=== PATIENT | female | born 1960 | race Caucasian/White ===

== ENCOUNTER 2017-03-16 17:55 | Emergency (ER) | payer SELFPAY ==
[~2017-03-16] VITALS: Ht 175.3 cm; Wt 81.8 kg
[~2017-03-16 17:55] MED LIST: CARDIZEM 30MG T30 MG PO; CELEXA 20MG20 MG/TAB PO; HCTZ 25MG TAB25 MG PO; PRILOSEC 20MG20 MG PO
[2017-03-16 17:57] VITALS: TEMP 97.7
[2017-03-16 19:13] VITALS: BP 142/76; PULSE 96
== END 2017-03-16 19:16 | disposition home or self-care (01) ==
LOC: COL.ER 17:55
DX: S61.011A Laceration without foreign body of right thumb without damage to nail, initial encounter (principal); F17.210 Nicotine dependence, cigarettes, uncomplicated; Z23 Encounter for immunization; W26.0XXA Contact with knife, initial encounter; Y92.009 Unspecified place in unspecified non-institutional (private) residence as the place of occurrence of the external cause

== ENCOUNTER 2018-11-30 16:41 | Inpatient (IN) | payer OTHER ==
[~2018-11-30] VITALS: Ht 175.3 cm; Wt 83.2 kg
[2018-11-30] VITALS (134 sets, daily range): BP systolic 163–170; BP diastolic 98–102; PULSE 95–99; TEMP 97.8; O2SAT 85–100
[2018-11-30 17:00] LABS: BASO % 0.4 % (0.0-2.0); EOS # 0.1 (0.0-0.7); EOS % 1.3 % (0-4.0); GRAN # 8.4 (1.4-6.5); GRAN % 78.8 % (42.2-75.2); HEMATOCRIT 44.5 % (37.0-47.0); HEMOGLOBIN 13.9 g/dl (12.5-16.0); LYMPH # 1.4 (1.2-3.4); LYMPH % 13.5 % (20.0-51.0); MEAN CELL VOLUME 90 fl (80.0-100.0); MEAN CORPUSCULAR HEMOGLOBIN 28 pg (27.0-31.0); MEAN CORPUSCULAR HGB CONC 31 g/dl (33.0-37.0); MEAN PLATELET VOLUME 11.1 fl (7.4-10.4); MONO # 0.6 (0.1-0.6); MONO % 5.8 % (1.7-9.3); PLATELET COUNT 322 K/mm3 (130-400); RED BLOOD COUNT 4.92 M/mm3 (4.10-5.30); REDCELL DISTRIBUTION WIDTH-CV 14.6 % (11.5-14.5)
[2018-11-30 17:16] LABS: ALBUMIN 4.1 gm/dL (3.5-5.0); BILIRUBIN,TOTAL 0.9 mg/dL (0.0-1.0); C-REACTIVE PROTEIN 1.9 mg/dL (0.0-0.9); CALCIUM 9.4 mg/dL (8.4-10.2); CREATININE, serum 0.82 (0.52-1.25); POTASSIUM 4.2 mmol/L (3.4-5.0); TOTAL PROTEIN 7.6 gm/dL (6.4-8.2)
[2018-11-30 17:27] LABS: TROPONIN-I 0.047 ng/mL (0.000-0.035)
--- NOTE | 2018-11-30 20:03 | NUR ---
Pt report received from Loulou KIM in ED.
--- NOTE | 2018-11-30 20:11 | NUR ---
Pt arrived to ICU06 via stretcher from ED accompanied by personal belongings. Pt was able to ambulate independently from the stretcher to the toilet located in the pts room and back to bed. No c/o dizziness or pain at this time. Increase SOA noted with ambulation. Assessment began at this time.
[2018-11-30] MEDS ORDERED: TRELEGY ELLIPT1 EACH IH (20:19)
[2018-11-30 23:27] LABS: MAGNESIUM 1.7 mg/dL (1.6-2.3)
[2018-11-30 23:43] LABS: TROPONIN-I 6 HR POST INITIAL 0.04 ng/mL (0.000-0.034)
[2018-12-01] VITALS (921 sets, daily range): BP systolic 126–174; BP diastolic 61–118; PULSE 88–102; TEMP 97.8–99.1; O2SAT 87–100
--- NOTE | 2018-12-01 01:40 | NUR ---
Pts O2 sats were dropping below 90% staying consistently around 88-89% for approx 3-4 minutes. O2 was applied to pt via NC at 2L. RT notified.
[2018-12-01 04:51] LABS: BASO % 0.4 % (0.0-2.0); EOS # 0.2 (0.0-0.7); EOS % 1.9 % (0-4.0); GRAN # 6.2 (1.4-6.5); HEMATOCRIT 41.9 % (37.0-47.0); HEMOGLOBIN 13.1 g/dl (12.5-16.0); LYMPH # 1.4 (1.2-3.4); LYMPH % 16.5 % (20.0-51.0); MEAN CELL VOLUME 90 fl (80.0-100.0); MEAN CORPUSCULAR HEMOGLOBIN 28 pg (27.0-31.0); MEAN CORPUSCULAR HGB CONC 31 g/dl (33.0-37.0); MEAN PLATELET VOLUME 10.9 fl (7.4-10.4); MONO # 0.6 (0.1-0.6); PLATELET COUNT 285 K/mm3 (130-400); RED BLOOD COUNT 4.65 M/mm3 (4.10-5.30); REDCELL DISTRIBUTION WIDTH-CV 14.6 % (11.5-14.5)
[2018-12-01 04:54] LABS: INR 1.2 (0.8-3.0)
[2018-12-01 05:01] LABS: CALCIUM 9.1 mg/dL (8.4-10.2); CREATININE, serum 0.98 (0.52-1.25); POTASSIUM 3.7 mmol/L (3.4-5.0)
[2018-12-01 05:15] LABS: TROPONIN-I 0.044 ng/mL (0.000-0.035)
--- NOTE | 2018-12-01 06:15 | NUR ---
Spoke with pt regarding upcoming shift change. Pt requested that we let her sleep if she is already sleeping.
--- NOTE | 2018-12-01 07:10 | NUR ---
Report provided to Marysol KIM. Pt resting in bed with eyes closed at this time.
--- NOTE | 2018-12-01 07:17 | NUR ---
Report received from Bev KIM and care resumed. Pt resting at this time.
--- NOTE | 2018-12-01 09:17 | NUR ---
Dr Moran at bedside to see pt. Wanted supplies for beside thoracentesis. Consent obtained and supplied gathered. Dr Moran did assess right sided effusion but does not feel there is enought fluid to drain at this time. Will continue to follow.
--- NOTE | 2018-12-01 10:16 | NUR ---
SW attended clinical rounds. Patient lives independently at home with her . Patient's PCP is Varsha Newman and she obtains prescriptions from [facility]. 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 Patient does not have a DPOA. SW does not anticipate any discharge needs but will continue to follow as needed.
--- NOTE | 2018-12-01 10:45 | NUR ---
Pt to clinical lab assistant at this time.
--- NOTE | 2018-12-01 11:07 | NUR ---
ALL MEDICATIONS GIVEN VORB WITH MD. SEE MERGE FOR ALL MEDICATION ADMIN TIMES. SEE MERGE FOR ALL RASS ASSESSMENTS DURING AND POST PROCEDURE. POSITIVE BARBEAU'S TEST IN THE RIGHT WRIST.
--- NOTE | 2018-12-01 12:30 | NUR ---
Right radial sheath still in place. Plan for pt to return to [facility] lab[facility] later today for stenting with Dr Salter. Sheath currently hooked to pressure bag per asphalt plant laborer.
--- NOTE | 2018-12-01 12:40 | NUR ---
Report received from flue dust laborer and pt brought back to ICU room 6 with right radial sheath still in place. Pt denies any pain. Instructed on importance of keeping arm straight and using to boost, pull, etc. Pt states understanding. Pt voiced having to void as she had received IV lasix in flue dust laborer just prior to returning to room. Purewick female external catheter placed and is currently to suction. Pt tolerating well. Will continue to follow.
--- NOTE | 2018-12-01 12:45 | NUR ---
Right radial sheath still in place and connected to pressure bag at this time per pathology lab technician orders.
--- NOTE | 2018-12-01 14:13 | NUR ---
SHEATH IN PLACE AT THIS TIME. ALL MEDICATION GIVEN VORB WITH MD. SEE MERGE FOR ALL MEDICATION ADMIN TIMES. SEE MERGE FOR ALL RASS ASSESSMENTS DURING AND POST PROCEDURE.
--- NOTE | 2018-12-01 15:50 | NUR ---
Pt returned from blood bank laboratory professional at 1530. TR band in place to right wrist with drainage noted. Pt denies any chest pain or concerns just stated she is hungry. Showed pt menu and how to order. Will continue to follow.
--- NOTE | 2018-12-01 16:30 | NUR ---
Pt BP elevated and pt stated she feels short of breath. Followed up with Janett MENDIOLA as well as cardiology and new orders received.
--- NOTE | 2018-12-01 18:45 | NUR ---
Dr Ozuna by to check on pt as pt remains short of breath and appears anxious. After assessing pt Dr Ozuna agreed and gave 1 time ativan dose. Pt is resting at this time. Will continue to follow.
--- NOTE | 2018-12-01 19:10 | NUR ---
Report given to Leah KIM and care transfered.
--- NOTE | 2018-12-01 20:00 | NUR ---
Assessment complete; radial site checked; scant drinage noted and TR band in place. Small area of bruising noted; slightly firm to touch. Outlined in marker. Will continue to monitior.
[2018-12-02] VITALS (504 sets, daily range): BP systolic 106–131; BP diastolic 57–77; PULSE 81–100; TEMP 97–98.6; O2SAT 88–100
--- NOTE | 2018-12-02 | NUR ---
Radial site checked; no concerns at this time. Sleeps between disturbances; will continue to monitor.
--- NOTE | 2018-12-02 | NUR ---
TR band deflated completely. Left on wrist in case of need to re-inflate.
[2018-12-02 06:05] LABS: BASO % 0.4 % (0.0-2.0); EOS # 0.2 (0.0-0.7); GRAN # 6.8 (1.4-6.5); GRAN % 79.6 % (42.2-75.2); HEMATOCRIT 44.3 % (37.0-47.0); HEMOGLOBIN 14.2 g/dl (12.5-16.0); LYMPH # 0.9 (1.2-3.4); LYMPH % 10.4 % (20.0-51.0); MEAN CELL VOLUME 88 fl (80.0-100.0); MEAN CORPUSCULAR HEMOGLOBIN 28 pg (27.0-31.0); MEAN CORPUSCULAR HGB CONC 32 g/dl (33.0-37.0); MEAN PLATELET VOLUME 10.8 fl (7.4-10.4); MONO # 0.6 (0.1-0.6); MONO % 7.5 % (1.7-9.3); PLATELET COUNT 297 K/mm3 (130-400); RED BLOOD COUNT 5.06 M/mm3 (4.10-5.30); REDCELL DISTRIBUTION WIDTH-CV 14.5 % (11.5-14.5)
[2018-12-02 06:26] LABS: CALCIUM 8.9 mg/dL (8.4-10.2); CREATININE, serum 0.89 (0.52-1.25); MAGNESIUM 1.8 mg/dL (1.6-2.3); POTASSIUM 3.8 mmol/L (3.4-5.0)
--- NOTE | 2018-12-02 07:00 | NUR ---
Bedside report received from JUDY Lynn. Patient currently sleeping. Plan of Care discussed. Right Radial site examined. Patient startles when awakened. She reorients easily. Will assume care.
--- NOTE | 2018-12-02 07:20 | NUR ---
Bedside report given to JUDY Alexander. Patient care transfered.
--- NOTE | 2018-12-02 09:45 | NUR ---
Patient has eaten breakfast, has no complaints. She states that she feels good. I talk to her about the plan of care. Cardiology has been by to see the patient and states that she can move up to medical floor after nitro is weaned off. She gets up to the toilet at this time, she is slightly unsteady on her feet. Patient is reminded to walk slowly d/t unsteadiness.
--- NOTE | 2018-12-02 11:07 | NUR ---
NITROGLYCERINE DRIP WEANED DOWN AND NOW DISCONTINUED PER VERBAL ORDER FROM DR. SPIVEY
--- NOTE | 2018-12-02 16:32 | NUR ---
CALLED JUDY BORJAS ON MEDICAL FLOOR AND REPORT GIVEN FOR THIS PATIENT
--- NOTE | 2018-12-02 18:43 | NUR ---
Patient is resting in bed on left side. States she is waiting for family to visit. Personal itesms and call light are within reach.
--- NOTE | 2018-12-02 21:30 | NUR ---
pt resting in bed A+Ox3. pt reported showering- IV was not wrapped. this nurse educated on the need for the IV to wrapped to prevent infection. reports no pain. No SOA. shift assessment complete. IV flushes well, no pain , no redness, no swelling. Right radial cath site DCI, slight tenderness at site. no needs at this time. call light in reach
--- NOTE | 2018-12-02 21:57 | NUR ---
PT REQUESTS THAT WE WAIT TILL AM TO GIVE NEB TX PT STATES SHE WILL CALL IF SHE NEEDS TX
[2018-12-03 00:03] VITALS: BP 105/58; PULSE 80; TEMP 98.1
[2018-12-03 03:26] VITALS: BP 119/59; PULSE 76; TEMP 98.4
--- NOTE | 2018-12-03 05:18 | NUR ---
PT HAD AN UNEVENTFUL NIGHT. REPORTED NO PAIN. MINIMAL DISCONFORT IN RIGHT RADIAL SITE. PT WORE SCD THROUGHOUT NIGHT. VSS. NO EDEMA NOTED. TELE ON. NO NEEDS AT THIS TIME, CALL LIGHT INREACH
[2018-12-03 06:27] LABS: BASO % 0.5 % (0.0-2.0); EOS # 0.2 (0.0-0.7); EOS % 2.4 % (0-4.0); GRAN # 6.2 (1.4-6.5); GRAN % 72.1 % (42.2-75.2); HEMATOCRIT 44.5 % (37.0-47.0); HEMOGLOBIN 13.9 g/dl (12.5-16.0); LYMPH # 1.4 (1.2-3.4); LYMPH % 16.1 % (20.0-51.0); MEAN CELL VOLUME 90 fl (80.0-100.0); MEAN CORPUSCULAR HEMOGLOBIN 28 pg (27.0-31.0); MEAN CORPUSCULAR HGB CONC 31 g/dl (33.0-37.0); MEAN PLATELET VOLUME 11.2 fl (7.4-10.4); MONO # 0.7 (0.1-0.6); MONO % 8.4 % (1.7-9.3); PLATELET COUNT 335 K/mm3 (130-400); RED BLOOD COUNT 4.96 M/mm3 (4.10-5.30); REDCELL DISTRIBUTION WIDTH-CV 14.4 % (11.5-14.5)
[2018-12-03 06:37] LABS: CALCIUM 9.1 mg/dL (8.4-10.2); CHOLESTEROL RISK RATIO 4.7; CREATININE, serum 0.96 (0.52-1.25); POTASSIUM 4.1 mmol/L (3.4-5.0)
--- NOTE | 2018-12-03 07:03 | NUR ---
report given to JUDY Urena. pt reports no needs at this time.
--- NOTE | 2018-12-03 07:10 | NUR ---
received report from JUDY Aparicio.
[2018-12-03 07:34] VITALS: BP 128/72; PULSE 74; TEMP 97.5
--- NOTE | 2018-12-03 08:35 | NUR ---
Assessment complete.patient awake,a/ox3.denies pain or discomfort at this time.VSS.all meds given.bandaid to R radial.site is [facility].INT to [facility].patient reports having "panic attacks".patient denies any needs at this time.will continue to monitor.call light in reach
[2018-12-03 11:23] VITALS: BP 104/78; PULSE 69; TEMP 97.4
[2018-12-03] MEDS ORDERED: LASIX 20MG TABL20 MG PO (11:25)
[2018-12-03] MEDS ORDERED: ALTACE 5MG5 MG PO (11:25)
[2018-12-03] MEDS ORDERED: TYLENOL 325MG325 MG PO (11:25)
[2018-12-03] MEDS ORDERED: TOPROL XL 50MG50 MG PO (11:25)
[2018-12-03] MEDS ORDERED: ASPIRIN E.C. 8181 MG PO (11:25)
[2018-12-03] MEDS ORDERED: BRILINTA90 MG PO (11:26)
[2018-12-03] MEDS ORDERED: PERFOROMIS20 MCG/2 M IH (11:26)
[2018-12-03] MEDS ORDERED: PROAIR HFA0.09 MG/AC IH (11:26)
[2018-12-03] MEDS ORDERED: LIPITOR 80MG80 MG PO (11:26)
[2018-12-03] MEDS ORDERED: XANAX 0.5MG0.5 MG PO (11:27)
--- NOTE | 2018-12-03 13:52 | NUR ---
PT DISCHARGE HOME AT THIS TIME.ALL DISCHARGE INSTRUCTIONS REVIEWED.ALL PAPERWORK SIGNED.ALL QUESTIONS ANSWERED.STENTS CARD GIVEN TO PATIENT.IV AND TELEMETRY DISCONTINUED.VC STAFF ESCORTED PATIENT OUT.
== END 2018-12-03 13:54 | disposition home or self-care (01) | DRG 246 ==
LOC: COL.ER 16:41 → ICU 19:43 → MEDICAL 12-02 17:15
PROVIDERS: Emergency Medicine; Nurse Practitioner; Nurse Practitioner Family; ADMIT Hospitalist
PROC: 027034Z Dilation of Coronary Artery, One Artery with Drug-eluting Intraluminal Device, Percutaneous Approach (ICD-10-PCS; principal; 2018-12-01)
PROC: 4A023N7 Measurement of Cardiac Sampling and Pressure, Left Heart, Percutaneous Approach (ICD-10-PCS; 2018-12-01)
PROC: B2111ZZ Fluoroscopy of Multiple Coronary Arteries using Low Osmolar Contrast (ICD-10-PCS; 2018-12-01)
DX: I21.4 Non-ST elevation (NSTEMI) myocardial infarction (principal); J96.01 Acute respiratory failure with hypoxia; J44.1 Chronic obstructive pulmonary disease with (acute) exacerbation; I25.110 Atherosclerotic heart disease of native coronary artery with unstable angina pectoris; I11.0 Hypertensive heart disease with heart failure; I50.9 Heart failure, unspecified; I34.0 Nonrheumatic mitral (valve) insufficiency; I16.0 Hypertensive urgency; F41.9 Anxiety disorder, unspecified; F41.0 Panic disorder [episodic paroxysmal anxiety]; Z87.891 Personal history of nicotine dependence; Z82.49 Family history of ischemic heart disease and other diseases of the circulatory system
CPT/HCPCS: 99222-AI; 99232-AI; 99239; C1725; C1769; C1874; C1887; C9600; J0583; J0690; J1644; J1940; J2060; J2250; J3010; Q9967

== ENCOUNTER 2021-08-16 17:06 | Emergency (ER) | payer SELFPAY ==
[~2021-08-16] VITALS: Ht 175.3 cm; Wt 79.5 kg
[~2021-08-16 17:06] MED LIST changes: +ALTACE 5MG5 MG PO; +ASPIRIN E.C. 8181 MG PO; +BRILINTA90 MG PO; +LASIX 20MG TABL20 MG PO; +LIPITOR 80MG80 MG PO; +PERFOROMIS20 MCG/2 M IH; +PROAIR HFA0.09 MG/AC IH; +TOPROL XL 50MG50 MG PO; +TRELEGY ELLIPT1 EACH IH; +TYLENOL 325MG325 MG PO; +XANAX 0.5MG0.5 MG PO
[2021-08-16 17:31] VITALS: TEMP 98
[2021-08-16 18:06] LABS: BASO # 0.1 K/mm3 (0.0-0.2); BASO % 0.6 % (0.0-2.0); EOS # 0.1 K/mm3 (0.0-0.7); EOS % 1.7 % (0.0-4.0); GRAN # 5.8 K/mm3 (1.4-6.5); GRAN % 74.9 % (42.2-75.2); LYMPH # 1.2 K/mm3 (1.2-3.4); MEAN CELL VOLUME 90 fl (80.0-100.0); MEAN CORPUSCULAR HEMOGLOBIN 29 pg (27-31); MEAN CORPUSCULAR HGB CONC 32 g/dl (33.0-37.0); MEAN PLATELET VOLUME 11.1 fl (7.4-10.4); MONO # 0.5 K/mm3 (0.1-0.6); MONO % 6.7 % (1.7-9.3); PLATELET COUNT 289 K/mm3 (130-400); RED BLOOD COUNT 5.95 M/mm3 (4.10-5.30); REDCELL DISTRIBUTION WIDTH-CV 13.6 % (11.5-14.5)
[2021-08-16 18:10] LABS: HEMATOCRIT 53.5 % (37.0-47.0)
[2021-08-16 18:14] LABS: PARTIAL THROMBOPLASTIN TIME 38.2 SECONDS (26.0-37.0)
[2021-08-16 18:18] LABS: ALBUMIN 4.3 gm/dL (3.4-4.8); BILIRUBIN,TOTAL 0.4 mg/dL (0.2-1.2); CALCIUM 9.2 mg/dL (8.4-10.2); CREATININE, serum 1.06 mg/dL (0.57-1.11); POTASSIUM 4.2 mmol/L (3.5-4.5); TOTAL PROTEIN 8.2 gm/dL (6.2-8.1)
[2021-08-16 18:26] LABS: TROPONIN-I 0.026 ng/mL (0.00-0.033)
[2021-08-16] MEDS ORDERED: NORVASC 5MG5 MG/TAB PO (21:27)
[2021-08-16 21:40] VITALS: BP 139/71; PULSE 71
== END 2021-08-16 21:40 | disposition home or self-care (01) ==
LOC: COL.ER 17:06
PROVIDERS: Family Medicine
DX: I11.0 Hypertensive heart disease with heart failure (principal); I50.9 Heart failure, unspecified; I25.10 Atherosclerotic heart disease of native coronary artery without angina pectoris; I25.2 Old myocardial infarction; Z95.5 Presence of coronary angioplasty implant and graft; Z79.82 Long term (current) use of aspirin; Z79.899 Other long term (current) drug therapy

== ENCOUNTER → 2021-11-25 | Outpatient (CLI) | payer OTHER ==
[~2021-11-25] MED LIST changes: +NORVASC 5MG5 MG/TAB PO
== END ==
LOC: COL.RAD 08:07
DX: S52.022A Displaced fracture of olecranon process without intraarticular extension of left ulna, initial encounter for closed fracture (principal); S52.132A Displaced fracture of neck of left radius, initial encounter for closed fracture; M25.022 Hemarthrosis, left elbow

== ENCOUNTER → 2022-09-21 | Outpatient (CLI) | payer OTHER | LOC: MC.RAD 08:25 | DX: Z12.31 Encounter for screening mammogram for malignant neoplasm of breast (principal) ==

== ENCOUNTER → 2023-05-05 | Outpatient (CLI) | payer MEDICARE | LOC: COL.RAD 13:11 | DX: Z12.2 Encounter for screening for malignant neoplasm of respiratory organs (principal); F17.210 Nicotine dependence, cigarettes, uncomplicated ==

== ENCOUNTER → 2023-09-15 | Outpatient (CLI) | payer MEDICARE ==
[~2023-09-15] MED LIST changes: +ZITHROMAX Z PA250 MG PO
== END ==
LOC: DIA.ED 08:26
DX: E11.59 Type 2 diabetes mellitus with other circulatory complications (principal); E78.5 Hyperlipidemia, unspecified; I10 Essential (primary) hypertension
CPT/HCPCS: G0108

== ENCOUNTER 2023-11-11 14:58 | Outpatient (RCR) | payer MEDICARE | END 2023-11-23 | disposition home or self-care (01) | LOC: COL.CR | DX: J44.9 Chronic obstructive pulmonary disease, unspecified (principal); Z82.49 Family history of ischemic heart disease and other diseases of the circulatory system ==